=== PATIENT | male | born 1940 | race Caucasian/White ===

== ENCOUNTER 2016-10-11 10:22 | Emergency (ER) | payer OTHER ==
[2016-10-11 10:30] VITALS: O2SAT 94
--- NOTE | 2016-10-11 11:52 | EDPHY ---
H & P Time Seen by Provider: 10/11/16 11:19 HPI/ROS: CHIEF COMPLAINT: Swelling left leg, rash HISTORY OF PRESENT ILLNESS: 75-year-old male presents to the emergency department by private vehicle complaining of rash to his left groin and under his arms over the last several weeks. He denies pain or itching associated with this. He denies chest pain or difficulty breathing. The patient states in August he was bit by a brown recluse spider at his home in [place] and since that time has had swelling in the left lower leg. 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 He denies chest pain. He has no difficulty breathing now. Specifically he denies pleuritic chest pain. No symptoms in the right lower extremity. REVIEW OF SYSTEMS: Constitutional: No fever, no chills. Eyes: No double or blurry vision. ENT: No sore throat. Respiratory: No cough, no shortness of breath. Cardiac: No chest pain. Gastrointestinal: No abdominal pain, vomiting or diarrhea. Genitourinary: No dysuria. Musculoskeletal: No neck or back pain. Skin: Rash as above Neurological: No headache. Past Medical/Surgical History: GERD, hypertension Social History: Smoking Status: Never smoked Physical Exam: General Appearance: Alert, no distress. 36.4, 173/69, 94% on room air. Eyes: Pupils equal and round. Extraocular motions are all intact. ENT: Mouth: Mucous membranes moist. Respiratory: No wheezing, rhonchi, or rales, lungs are clear to auscultation. Cardiovascular: Regular rate and rhythm. Gastrointestinal: Abdomen is soft and nontender, no masses, no rebound or guarding, bowel sounds normal. Neurological: Alert and oriented x 3, cranial nerves II through XII grossly intact Skin: Erythematous rash noted to the left groin. There is a central clearing noted with scaly borders consistent with tinea. This is also noted in the left and right axilla. No vesicles noted. No warmth. Nontender to palpate. Musculoskeletal: Nontender to palpate along the cervical, thoracic or lumbar spine. Neck is supple. Extremities: Full range of motion and no peripheral edema. Psychiatric: Patient is oriented X 3, there is no agitation. Constitutional: Initial Vital Signs Temperature (C) 36.4 C 10/11/16 10:28 Heart Rate 64 10/11/16 10:28 Respiratory Rate 17 10/11/16 10:28 Blood Pressure 173/69 H 10/11/16 10:28 O2 Sat (%) 94 10/11/16 10:28 O2 Delivery Mode Room Air Allergies/Adverse Reactions: No Known Allergies Allergy (Verified 10/11/16 10:27) Home Medications: Medication Instructions Recorded Finasteride 06/12/15 Omeprazole [Prilosec] 06/12/15 Amlodipine Besylate 10/11/16 Medical Decision Making - Diagnostics Imaging: Ultrasound of the left leg reveals no evidence of DVT. This is reported to me by Dr. Mundo Hicks. ED Course/Re-evaluation: 75-year-old male presents with rash for last few weeks. Clinically I think this appears like tinea. He will be treated with clotrimazole 1% cream to apply twice daily for 1 week. The patient is also had swelling in his left leg. I explained to the patient was concerned about possible DVT. Ultrasound was ordered which revealed no evidence of DVT. 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 Patient should return to the emergency department if any change in symptoms or if he feels worse in any way. Differential Diagnosis: Including but not limited to tinea, cellulitis, zoster, dermatitis Departure - Departure Disposition: Home, Routine, Self-Care Clinical Impression: Tinea, Calf swelling Condition: Good Instructions: Tinea Corporis (ED) Additional Instructions: Clotrimazole 1% cream apply twice daily for 1 week to rash. Try not to itch or touch the rash as this may cause spreading. You do not have a blood clot in your left calf. Return if you developed pain in your calf, increasing swelling or any other concerns. Referrals: Nils Saldaña MD [Medical Doctor] - As per Instructions (Primary care provider )
--- NOTE | 2016-10-11 14:05 | US ---
Ultrasound and Venous Duplex Doppler Study of the Left Lower Extremity Clinical History: 75-year-old male with fluctuating left lower extremity swelling since sustaining a spider bite in August 2016. Evaluate for DVT. Technique: A high frequency transducer was used for imaging and Doppler study of the veins of the le ft lower extremity. Pulsed Doppler and color Doppler were utilized, along with various maneuvers to assess flow in the veins. Cursory evaluation of the contralateral common femoral vein was obtained f or comparison purposes. Comparison Study: None. Findings: The deep veins of the left lower extremity are normally compressible between the groin and the upper calf, and have normal Doppler waveforms. There is no sonographic evidence of deep venous t hrombosis. The greater saphenous vein is compressible. The popliteal fossa is unremarkable. In the di stal medial left calf at the level of the spider bite, there is an avascular hypoechoic subcutaneous area measuring 2.1 x 0.8 x 0.4 cm. Impression: 1. There is no sonographic evidence of deep or superficial vein thrombosis in the left lower extremit y. 2. There is a 2.1 x 0.8 x 0.4 cm avascular hypoechoic area in the distal medial left calf where patie nt sustained a prior spider bite. Results were conveyed to Anamika Ramirez PA-C. A test result has been communicated to a licensed care provider and documented in the [facility] Result system on 10/11/2016 14:03, Message ID [id number].
[2016-10-11 14:23] VITALS: BP 154/81; PULSE 56; RESP 14; TEMP 97.9
== END 2016-10-11 14:22 | disposition home or self-care (01) ==
DX: M79.89 Other specified soft tissue disorders (principal); B35.9 Dermatophytosis, unspecified; I10 Essential (primary) hypertension

== ENCOUNTER → 2017-03-24 | Outpatient (CLI) | payer OTHER | LOC: FIMAGING 14:22 | PROVIDERS: ATTEND Internal Medicine Pulmonary Disease | DX: R91.1 Solitary pulmonary nodule (principal) ==

== ENCOUNTER → 2018-06-02 | Outpatient (CLI) | payer OTHER | LOC: FIMAGING 16:50 | PROVIDERS: ATTEND Internal Medicine | DX: N28.1 Cyst of kidney, acquired (principal) ==